=== PATIENT | female | born 1980 | race Two or more races ===

== ENCOUNTER 2020-09-27 22:24 | Emergency (ER) | payer OTHER ==
[~2020-09-27] VITALS: Ht 149.9 cm; Wt 69.4 kg
== END 2020-09-27 23:14 | disposition home or self-care (01) ==
LOC: ER 22:24
DX: S20.212A Contusion of left front wall of thorax, initial encounter (principal); W18.39XA Other fall on same level, initial encounter; Y93.89 Activity, other specified; Y92.091 Bathroom in other non-institutional residence as the place of occurrence of the external cause; Y99.8 Other external cause status